=== PATIENT | female | born 1990 | race Caucasian/White ===

== ENCOUNTER 2019-07-13 14:18 | Emergency (ER) | payer MEDICAID ==
[~2019-07-13] VITALS: Ht 162.6 cm; Wt 91.2 kg
[2019-07-13 14:30] VITALS: BP 110/53
--- NOTE | 2019-07-13 14:46 | NUR ---
PT HERE WITH C/O POSSIBLE FORIEGN BODY IN SOLE OF LEFT FOOT FOR APPROX. 1 MONTH.
--- NOTE | 2019-07-13 15:16 | NUR ---
Patient/Caregiver given discharge instructions and they have confirmed that they understand the instructions. Patient ambulatory with steady gait.
== END 2019-07-13 15:27 | disposition home or self-care (01) ==
LOC: ED 15:21
DX: M79.672 Pain in left foot (principal); B07.0 Plantar wart; F17.210 Nicotine dependence, cigarettes, uncomplicated
CPT/HCPCS: 99281